=== PATIENT | male | born 1985 | race Two or more races ===

== ENCOUNTER 2017-02-01 20:08 | Emergency (ER) | payer SELFPAY ==
[~2017-02-01] VITALS: Ht 172.7 cm; Wt 111.1 kg
[2017-02-01] MEDS ORDERED: LISINOPRIL20 MG ORAL (20:32)
--- NOTE | 2017-02-01 20:50 | Emergency Room Report ---
History of Present Illness General Chief Complaint: Lower Extremity Injury Source: Patient Present Illness [facility] The patient is a 31-year-old male who presented after increased pain to his left knee. Patient reported running on a treadmill this morning around 10 AM he reported feeling a pop sensation. The patient reported having increased pain to the medial portion of his left knee the patient noticed increased swelling. 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 The patient been having difficulty with ambulation. He had been using some crutches since the injury. Allergies: Coded Allergies: PENICILLINS (Verified Allergy, Unknown, 02/01/17) Patient History Past Medical History: see triage record Reviewed Nursing Documentation: PMH: Agreed, PSxH: Agreed Nursing Documentation-PMH Hx Hypertension: Yes Review of Systems All Other Systems: negative except mentioned in HPI Physical Exam Vital Signs Date Time Temp Pulse Resp B/P (MAP) Pulse Ox O2 Delivery O2 Flow Rate FiO2 02/01/17 20:26 98.2 84 18 188/106 97 Room Air Sp02 EP Interpretation: reviewed, normal General Appearance: normal inspection, well appearing, no apparent distress, alert, GCS 15, non-toxic Head: atraumatic ENT: normal ENT inspection, hearing grossly normal, normal voice Neck: normal inspection, full range of motion, supple, no bony tend Respiratory: normal inspection, lungs clear, normal breath sounds, no respiratory distress, no retraction, no wheezing Cardiovascular #1: regular rate, rhythm, no edema Gastrointestinal: normal inspection, normal bowel sounds, non tender, soft, no guarding, no hernia Genitourinary: no CVA tenderness Musculoskeletal: normal inspection, back normal, normal range of motion, decreased range of motion, swelling, other - laxity on anterior drawer and medial stress Neurologic: normal inspection, alert, oriented x3, responsive, registered vascular technologist (rvt) III-XII nml as tested, speech normal Psychiatric: normal inspection, judgement/insight normal, mood/affect normal Skin: normal inspection, normal color, no rash Medical Decision Making Diagnostic Impression: Primary Impression: Left knee sprain ER Course Patient presented for knee pain. Differential diagnosis included was not limited to popliteal aneurysm, arthritis, dislocation, ligamentous injury, septic joint among others.The patient presented evidence of the left knee ligamentous injuryThe x-ray imaging of the knee 3 view interpreted by me showed normal bony alignment without evident fracture. The patient was placed in a knee immobilizer. I he was advised that he may need MRI.The patient is advised to follow up with primary care doctor in 1-2 days. Patient is advised to return if any worsening condition or if any changes in status that are concerning. The patient was placed on light duty Other X-Ray Diagnostic Results Other X-Ray Diagnostic Results : # of Views/Limited Vs Complete: 3 View Indication: Pain EP Interpretation: Yes PA Xray: Interpretation reviewed Impression: No acute disease Electronically Signed by: Electronically signed by Dr. Donavan Perez M.D. Last Vital Signs Date Time Temp Pulse Resp B/P (MAP) Pulse Ox O2 Delivery O2 Flow Rate FiO2 02/01/17 20:26 98.2 84 18 188/106 97 Room Air Status: improved Disposition: HOME, SELF-CARE Condition: Stable Scripts Ibuprofen* (MOTRIN*) 600 Mg Tablet 600 MG ORAL Q8H Y for For Pain, #30 TAB 0 Refills Prov: Donavan Perez 02/01/17 Donavan Perez Feb 01, 2017 20:49
[2017-02-01] MEDS ORDERED: IBUPROFEN600 MG ORAL (21:03)
[2017-02-01 21:39] VITALS: BP 188/106
--- NOTE | 2017-02-02 09:18 | Diagnostic Imaging Report ---
Indications: PAIN Technique: Three views of the left knee Comparison: None Findings: Small lucency surrounded by sclerosis of the posterior lateral condyle noted. This appears to be near the surface. Questionable tiny suprapatellar effusion. No other evidence of fracture or dislocation. Impression: Lateral condylar abnormality, as described. Suspect that this may represent an osteochondral defect; surrounding sclerosis suggests chronicity. Small osteoid osteoma also a possibility. Consider MRI for better characterization. No definite acute abnormality Findings discussed by phone with Dr. Vargas in the emergency room at the time of interpretation
[2017-02-03] MEDS ORDERED: IBUPROFEN600 MG ORAL (06:32)
[2017-02-05] MEDS ORDERED: LISINOPRIL20 MG ORAL (14:41)
== END 2017-02-01 21:50 | disposition home or self-care (01) ==
LOC: EMR 20:44
DX: S83.92XA Sprain of unspecified site of left knee, initial encounter (principal); Y93.A1 Activity, exercise machines primarily for cardiorespiratory conditioning; Y92.89 Other specified places as the place of occurrence of the external cause; I10 Essential (primary) hypertension; Z88.0 Allergy status to penicillin
CPT/HCPCS: 99283